=== PATIENT | female | born 1955 | race Caucasian/White ===

== ENCOUNTER 2018-02-18 01:22 | Observation (INO) | payer OTHER ==
--- NOTE | 2018-02-18 01:41 | ED ---
Chest Pain HPI - General Chief Complaint: Chest Pain Stated Complaint: chest heaviness Time Seen by Provider: 02/18/18 01:36 Source: patient Mode of arrival: ambulatory Limitations: no limitations - History of Present Illness Initial Comments: This patient is a 63-year-old woman who presents to be evaluated for substernal chest pressure. This first developed 3 nights ago, while the patient was at rest. She describes it as a pressure feeling, constant, without worsening or relieving factors. She denies any associated anginal symptoms, including no diaphoresis, dyspnea, nausea or vomiting, palpitations, lightheadedness or syncope. She states that it feels more intense tonight. Complaint: chest pain Onset/Timin -: days(s) Onset: during rest Pain Location: substernal Pain Radiation: none Severity: moderate Quality: dull Consistency: constant Improves With: nothing Worsens With: nothing Treatments Prior to Arrival: none - Related Data Home Medications Medication Instructions Recorded Confirmed Alendronate Sodium 70 mg PO 02/18/18 Atorvastatin [Lipitor] 40 mg PO DAILY 02/18/18 02/18/18 Calcium Carbonate [Calcium] 600 mg PO 02/18/18 Cyclobenzaprine [Flexeril] 10 mg PO HS 02/18/18 02/18/18 Ergocalciferol [Vitamin D2] 50,000 unit PO Q7D 02/18/18 02/18/18 Levothyroxine Sodium 25 mcg PO 02/18/18 Omeprazole 40 mg PO 02/18/18 Ranitidine HCl [Zantac] 150 mg PO BID 02/18/18 02/18/18 Topiramate [Topamax] 100 mg PO BID 02/18/18 02/18/18 Venlafaxine HCl [Effexor XR] 150 mg PO 02/18/18 Verapamil HCl [Verapamil ER] 240 mg PO 02/18/18 Ziprasidone HCl [Geodon] 80 mg PO 02/18/18 hydrOXYzine PAMOATE 50 mg PO 02/18/18 Allergies Allergy/AdvReac Type Severity Reaction Status Date / Time codeine AdvReac Rash/Hives Verified 02/18/18 01:29 morphine AdvReac Rash/Hives Verified 02/18/18 01:29 Review of Systems ROS Statement: Those systems with pertinent positive or pertinent negative responses have been documented in the HPI. ROS Other: All systems not noted in ROS Statement are negative. Constitutional: Denies: fever, chills Respiratory: Denies: cough, dyspnea Cardiovascular: Reports: as per HPI, chest pain. Denies: palpitations, dyspnea on exertion, orthopnea, edema, syncope Gastrointestinal: Denies: abdominal pain, nausea, vomiting Genitourinary: Denies: dysuria, hematuria Musculoskeletal: Denies: back pain Skin: Denies: rash Neurological: Denies: headache EKG Findings - EKG Results: EKG: interpreted by CLARISAD, sinus rhythm (Rate 73 bpm), normal axis, normal QRS - Blocks, [place], Hypertrophy, ST Abn: Repolarization changes or abnormalities: nonspecific abnormality, ST segment, and/or T wave Past Medical History Past Medical History: Hyperlipidemia, Hypertension, Osteoarthritis (OA), Thyroid Disorder Additional Past Medical History / Comment(s): hypothyroid, History of Any Multi-Drug Resistant Organisms: None Reported Past Surgical History: Section, Cholecystectomy, Hysterectomy, Orthopedic Surgery Additional Past Surgical History / Comment(s): biopsies, bunion removal X2, removed lobectomy, Past Psychological History: Bipolar Smoking Status: Former smoker Past Alcohol Use History: None Reported Past Drug Use History: None Reported General Exam Limitations: no limitations General appearance: alert, in no apparent distress Head exam: Present: atraumatic, normocephalic Eye exam: Present: normal appearance. Absent: scleral icterus, conjunctival injection ENT exam: Present: normal oropharynx Respiratory exam: Present: normal lung sounds bilaterally. Absent: respiratory distress, wheezes, rales, rhonchi, stridor, chest wall tenderness Cardiovascular Exam: Present: regular rate, normal rhythm, normal heart sounds. Absent: systolic murmur, diastolic murmur, rubs, gallop GI/Abdominal exam: Present: soft. Absent: distended, tenderness, guarding, rebound, rigid, mass Extremities exam: Present: normal inspection, normal capillary refill. Absent: pedal edema, calf tenderness Back exam: Present: normal inspection. Absent: CVA tenderness (R), CVA tenderness (L) Neurological exam: Present: alert Skin exam: Present: warm, dry, intact, normal color. Absent: rash Course Vital Signs 02/18/18 02/18/18 02/18/18 01:23 03:08 03:41 Temperature 97.9 F Pulse Rate 84 67 64 Respiratory 18 16 17 Rate Blood Pressure 182/84 175/86 148/76 O2 Sat by Pulse 95 99 99 Oximetry Disposition Clinical Impression: Chest pain Disposition: ADMITTED IP TO THIS HOSP Condition: Good Is patient prescribed a controlled substance at d/c from ED?: No Referrals: None,Stated [Primary Care Provider] - 1-2 days
[2018-02-18 02:09] LABS: Appearance,Urine Clear (Clear); Bilirubin,Urine Negative (Negative); Blood,Urine Negative (Negative); Color,Urine Light Yellow; Glucose,Urine (UA) Negative (Negative); Ketones,Urine Negative (Negative); Leukocyte Esterase,Urine Moderate (Negative); Nitrite,Urine Negative (Negative); Protein,Urine Negative (Negative); RBC,Urine 1 /hpf (0-5); Specific Gravity,Urine 1.003 (1.001-1.035); Squamous Epithelial Cell,Urine 1 /hpf (0-4); Urobilinogen,Urine <2.0 mg/dL (<2.0); WBC,Urine 7 /hpf (0-5)
[2018-02-18 02:10] LABS: Basophils % (A) 0 %; Eosinophils % (A) 1 %; HCT 38.8 % (34.0-46.0); HGB 12.6 gm/dL (11.4-16.0); Lymphocytes # (A) 1.9 k/uL (1.0-4.8); Lymphocytes % (A) 30 %; MCH 27.1 pg (25.0-35.0); MCHC 32.5 g/dL (31.0-37.0); MCV 83.3 fL (80.0-100.0); Monocytes # (A) 0.4 k/uL (0-1.0); Monocytes % (A) 6 %; Neutrophils # (A) 3.7 k/uL (1.3-7.7); Neutrophils % (A) 60 %; Platelet Count 344 k/uL (150-450); RBC 4.66 m/uL (3.80-5.40); RDW 15.4 % (11.5-15.5); WBC 6.2 k/uL (3.8-10.6)
--- NOTE | 2018-02-18 02:10 | XR ---
EXAMINATION TYPE: XR chest 1V portable DATE OF EXAM: 02/18/2018 COMPARISON: NONE HISTORY: Chest pain TECHNIQUE: Single frontal view of the chest is obtained. FINDINGS: Heart and mediastinum are normal. Lungs are clear. Diaphragm is normal. Bony thorax is int act. There are chest leads. IMPRESSION: Normal chest
[2018-02-18 02:17] LABS: Partial Thromboplastin Time 24.1 sec (22.0-30.0); Prothrombin Time 9.5 sec (9.0-12.0)
[2018-02-18 02:20] LABS: ALT 35 U/L (9-52); AST 27 U/L (14-36); Albumin 4.4 g/dL (3.5-5.0); Alkaline Phosphatase 136 U/L (38-126); Anion Gap 14 mmol/L; Blood Urea Nitrogen 4 mg/dL (7-17); Calcium 9.6 mg/dL (8.4-10.2); Carbon Dioxide 23 mmol/L (22-30); Chloride 98 mmol/L (98-107); Glucose 101 mg/dL (74-99); Magnesium 1.9 mg/dL (1.6-2.3); Potassium 3.8 mmol/L (3.5-5.1); Sodium 135 mmol/L (137-145); Total Bilirubin 0.5 mg/dL (0.2-1.3); Total Protein 6.9 g/dL (6.3-8.2)
[2018-02-18 02:28] LABS: Creatine Kinase 322 U/L (30-135)
[2018-02-18 02:32] LABS: Amylase 67 U/L (30-110); Lipase 183 U/L (23-300)
[2018-02-18 02:41] LABS: Creatine Kinase MB 2.4 ng/mL (0.0-2.4); Troponin I <0.012 ng/mL (0.000-0.034)
[2018-02-18] MEDS ORDERED: NITROGLYCERIN SL TABS 0.4 MG TAB SUBLINGUAL STA (02:58)
[2018-02-18] MEDS ORDERED: ASPIRIN 81 MG PO STA (02:58)
[2018-02-18] MEDS ORDERED: ONDANSETRON 4 MG/2 ML VIAL IVP STA (03:12)
[2018-02-18] MEDS ORDERED: fentaNYL (PF) 50 MCG/ML 2 ML AMP IV STA (04:38)
[2018-02-18 05:55] VITALS: BMI 35.9
[2018-02-18] MEDS ORDERED: NALOXONE 0.4 MG/ML 1 ML VIAL IV PRN (06:39)
[2018-02-18] MEDS ORDERED: ONDANSETRON 4 MG/2 ML VIAL IVP PRN (06:39)
[2018-02-18] MEDS ORDERED: ACETAMINOPHEN TAB 325 MG TAB PO PRN (06:39)
[2018-02-18] MEDS ORDERED: RX INFO: IV CONTRAST WAS GIVEN 1 EACH MISC MISCELLANE PRN (06:42)
--- NOTE | 2018-02-18 06:49 | P.HPIM ---
History of Present Illness H&P Date: 02/18/18 Is a 63-year-old female with past medical history of anxiety hypertension was admitted to the hospital with chest pain that has been going on and off for the last 2 or 3 days comes and goes as she states that she feels uncomfortable with some shortness of breath the chest pain improved but she continued to have uncomfortable feeling denies any vomiting denies any fever Chest pain is not associated with exertion she has a chest pain at rest Review of systems and systems has been reviewed all negative and positive findings as per HPI Past Medical History Past Medical History: Hyperlipidemia, Hypertension, Osteoarthritis (OA), Thyroid Disorder Additional Past Medical History / Comment(s): hypothyroid, History of Any Multi-Drug Resistant Organisms: None Reported Past Surgical History: Section, Cholecystectomy, Hysterectomy, Orthopedic Surgery Additional Past Surgical History / Comment(s): biopsies, bunion removal X2, removed lobectomy, Past Psychological History: Bipolar Smoking Status: Former smoker Past Alcohol Use History: None Reported Past Drug Use History: None Reported Constitutional: No acute distress, conversant, pleasant Eyes: Anicteric sclerae, moist conjunctiva, no lid-lag PERRLA ENMT: NC/AT Oropharynx clear, no erythema, exudates Neck: Supple, FROM, no masses, or JVD No carotid bruits No thyromegaly Lungs: Clear to auscultation Clear to percussion Normal respiratory effort, no accessory muscle use Cardiovascular: Heart regular in rate and rhythm, No murmurs, gallops, or rubs No peripheral edema Abdominal: Soft Nontender, no guarding, Skin: Normal temperature, tone, texture, turgor No induration No subcutaneous nodules No rash, lesions No ulcers Extremities: No digital cyanosis No clubbing Pedal pulses intact and symmetrical Radial pulses intact and symmetrical Normal gait and station No calf tenderness Psychiatric:Alert and oriented to person, place and time Appropriate affect Intact judgement Neuro: No obvious focal deficits Laboratory Results - last 24 hr 02/18/18 02/18/18 02/18/18 01:51 01:51 01:51 WBC 6.2 RBC 4.66 Hgb 12.6 Hct 38.8 MCV 83.3 MCH 27.1 MCHC 32.5 RDW 15.4 Plt Count 344 Neutrophils % 60 Lymphocytes % 30 Monocytes % 6 Eosinophils % 1 Basophils % 0 Neutrophils # 3.7 Lymphocytes # 1.9 Monocytes # 0.4 Eosinophils # 0.0 Basophils # 0.0 PT INR APTT D-Dimer Sodium 135 L Potassium 3.8 Chloride 98 Carbon Dioxide 23 Anion Gap 14 BUN 4 L Creatinine 0.70 Est GFR (CKD-EPI)AfAm >90 Est GFR (CKD-EPI)NonAf >90 Glucose 101 H Calcium 9.6 Magnesium 1.9 Total Bilirubin 0.5 AST 27 ALT 35 Alkaline Phosphatase 136 H Total Creatine Kinase 322 H CK-MB (CK-2) 2.4 CK-MB (CK-2) Rel Index 0.7 Troponin I <0.012 Total Protein 6.9 Albumin 4.4 Amylase Lipase Urine Color Urine Appearance Urine pH Ur Specific [place] Urine Protein Urine Glucose (UA) Urine Ketones Urine Blood Urine Nitrite Urine Bilirubin Urine Urobilinogen Ur Leukocyte Esterase Urine RBC Urine WBC Ur Squamous Epith Cells 02/18/18 02/18/18 02/18/18 01:51 01:51 01:51 WBC RBC Hgb Hct MCV MCH MCHC RDW Plt Count Neutrophils % Lymphocytes % Monocytes % Eosinophils % Basophils % Neutrophils # Lymphocytes # Monocytes # Eosinophils # Basophils # PT 9.5 INR 1.0 APTT 24.1 D-Dimer Sodium Potassium Chloride Carbon Dioxide Anion Gap BUN Creatinine Est GFR (CKD-EPI)AfAm Est GFR (CKD-EPI)NonAf Glucose Calcium Magnesium Total Bilirubin AST ALT Alkaline Phosphatase Total Creatine Kinase CK-MB (CK-2) CK-MB (CK-2) Rel Index Troponin I Total Protein Albumin Amylase 67 Lipase 183 Urine Color Light Yellow Urine Appearance Clear Urine pH 6.0 Ur Specific [place] 1.003 Urine Protein Negative Urine Glucose (UA) Negative Urine Ketones Negative Urine Blood Negative Urine Nitrite Negative Urine Bilirubin Negative Urine Urobilinogen <2.0 Ur Leukocyte Esterase Moderate H Urine RBC 1 Urine WBC 7 H Ur Squamous Epith Cells 1 02/18/18 01:51 WBC RBC Hgb Hct MCV MCH MCHC RDW Plt Count Neutrophils % Lymphocytes % Monocytes % Eosinophils % Basophils % Neutrophils # Lymphocytes # Monocytes # Eosinophils # Basophils # PT INR APTT D-Dimer 0.33 Sodium Potassium Chloride Carbon Dioxide Anion Gap BUN Creatinine Est GFR (CKD-EPI)AfAm Est GFR (CKD-EPI)NonAf Glucose Calcium Magnesium Total Bilirubin AST ALT Alkaline Phosphatase Total Creatine Kinase CK-MB (CK-2) CK-MB (CK-2) Rel Index Troponin I Total Protein Albumin Amylase Lipase Urine Color Urine Appearance Urine pH Ur Specific [place] Urine Protein Urine Glucose (UA) Urine Ketones Urine Blood Urine Nitrite Urine Bilirubin Urine Urobilinogen Ur Leukocyte Esterase Urine RBC Urine WBC Ur Squamous Epith Cells Vital Signs - 24 hr 02/18/18 02/18/18 02/18/18 01:23 03:08 03:41 Temperature 97.9 F Pulse Rate 84 67 64 Pulse Rate [ Pulse Oximetery ] Respiratory 18 16 17 Rate Blood Pressure 182/84 175/86 148/76 Blood Pressure [Left Arm] O2 Sat by Pulse 95 99 99 Oximetry 02/18/18 02/18/18 02/18/18 05:39 06:03 06:12 Temperature 97.6 F Pulse Rate Pulse Rate [ 62 68 75 Pulse Oximetery ] Respiratory 16 16 Rate Blood Pressure Blood Pressure 195/92 159/77 [Left Arm] O2 Sat by Pulse 93 L Oximetry Assessment and plan Chest pain with typical and atypical features cardiology has been consulted carotid enzymes has been negative We will also check computed tomography scan of the lungs to rule out PE Hypertension currently uncontrolled but acceptable we will resume home medications and will monitor Anxiety Past Medical History Past Medical History: GERD/Reflux, Hyperlipidemia, Hypertension, Osteoarthritis (OA), Thyroid Disorder Additional Past Medical History / Comment(s): hypothyroid, palpatations, melonoma behind left knee wtih removal, IBS History of Any Multi-Drug Resistant Organisms: None Reported Past Surgical History: Section, Cholecystectomy, Hysterectomy, Orthopedic Surgery Additional Past Surgical History / Comment(s): biopsies, bunion removal X2, only has right lobe of liver due to large blockage of bile duct, left knee arthroscopy, melonoma removed behind left knee Past Anesthesia/Blood Transfusion Reactions: No Reported Reaction, Previous Problems w/ Anesthesia Additional Past Anesthesia/Blood Transfusion Reaction / Comment(s): problems with hypotension after anesthia Past Psychological History: Bipolar Smoking Status: Former smoker Past Alcohol Use History: None Reported Past Drug Use History: None Reported - Past Family History Father Family Medical History: Coronary Artery Disease (CAD) Additional Family Medical History / Comment(s): not being treated still alive Mother Additional Family Medical History / Comment(s): cirrhosis of liver at age 72 Medications and Allergies Home Medications Medication Instructions Recorded Confirmed Type Alendronate Sodium 70 mg PO WEEKLY 02/18/18 02/18/18 History Atorvastatin [Lipitor] 40 mg PO DAILY 02/18/18 02/18/18 History Calcium Carbonate [Calcium] 500 mg PO BID 02/18/18 02/18/18 History Cyclobenzaprine [Flexeril] 10 mg PO BID 02/18/18 02/18/18 History Ergocalciferol [Vitamin D2] 50,000 unit PO Q7D 02/18/18 02/18/18 History Levothyroxine Sodium 25 mcg PO DAILY 02/18/18 02/18/18 History Omeprazole 40 mg PO BID 02/18/18 02/18/18 History Ranitidine HCl [Zantac] 150 mg PO BID 02/18/18 02/18/18 History Topiramate [Topamax] 100 mg PO BID 02/18/18 02/18/18 History Venlafaxine HCl [Effexor XR] 150 mg PO DAILY 02/18/18 02/18/18 History Verapamil HCl [Verapamil ER] 240 mg PO DAILY 02/18/18 02/18/18 History Ziprasidone HCl [Geodon] 80 mg PO DIRECTED 02/18/18 02/18/18 History hydrOXYzine PAMOATE 50 mg PO DAILY 02/18/18 02/18/18 History Allergies Allergy/AdvReac Type Severity Reaction Status Date / Time codeine AdvReac Rash/Hives Verified 02/18/18 01:29 morphine AdvReac Rash/Hives Verified 02/18/18 01:29 Physical Exam Vitals: Vital Signs Temp Pulse Pulse Resp BP BP Pulse Ox 02/18/18 06:12 75 159/77 02/18/18 06:03 68 16 02/18/18 05:39 97.6 F 62 16 195/92 93 L 02/18/18 03:41 64 17 148/76 99 02/18/18 03:08 67 16 175/86 99 02/18/18 01:23 97.9 F 84 18 182/84 95 Intake and Output 02/17/18 02/17/18 02/18/18 14:59 22:59 06:59 Other: Voiding Method Toilet # Voids 1 Weight 86.183 kg Results CBC & Chem 7: 02/18/18 01:51 02/18/18 01:51 Labs: Abnormal Lab Results - Last 24 Hours (Table) 02/18/18 02/18/18 02/18/18 Range/Units 01:51 01:51 01:51 Sodium 135 L (137-145) mmol/L BUN 4 L (7-17) mg/dL Glucose 101 H (74-99) mg/dL Alkaline Phosphatase 136 H (38-126) U/L Total Creatine Kinase 322 H (30-135) U/L Ur Leukocyte Esterase Moderate H (Negative) Urine WBC 7 H (0-5) /hpf Thrombosis Risk Factor Assmnt - Choose All That Apply Each Factor Represents 1 point: Obesity (BMI >25) Each Risk Factor Represents 2 Points: Age 61-74 years Thrombosis Risk Factor Assessment Total Risk Factor Score: 3 Thrombosis Risk Factor Assessment Level: Moderate Risk
--- NOTE | 2018-02-18 08:24 | CT ---
EXAMINATION TYPE: CT chest angio for PE DATE OF EXAM: 02/18/2018 COMPARISON: Chest x-ray earlier today HISTORY: Chest pain rule out pulmonary embolism. CT DLP: 343.9 mGycm. Automated Exposure Control for Dose Reduction was Utilized. CONTRAST: CTA scan of the thorax is performed with IV Contrast, patient injected with 100 mL of Isovue 370, pul monary embolism protocol. MIP Images are created on CT scanner and reviewed. FINDINGS: LUNGS: There is 8 x 5 mm calcified nodule or granuloma superior aspect left lower lobe on axial image 57. There is 3 x 2 mm nodule or nodular density left upper lobe axial image 20. No suspicious greate r than 5 mm noncalcified nodules or masses are identified. No suspicious consolidation or groundglass opacity is seen. No pleural effusion or pneumothorax is noted. Slightly elevated left hemidiaphragm is seen. Tracheobronchial tree is patent. MEDIASTINUM: There is satisfactory enhancement of the pulmonary artery and its branches, there is no CT evidence for pulmonary embolism. There are no greater than 1 cm noncalcified hilar or mediastinal lymph nodes. A few calcified subcentimeter left hilar lymph nodes are seen. No cardiomegaly or dianna cardial effusion is seen. Moderate to severe thickening of distal esophagus is present could be produ ct of poor distention, correlate clinically. OTHER: Left hepatic lobe is surgically absent with clips. Gallbladder is also likely surgically absen t. There is fat replaced atrophy of visualized anterior rectus muscles in the upper abdomen. There is mild multilevel spurring in the thoracic spine. Occasional calcification in the spleen is seen. IMPRESSION: 1. No CT evidence for acute pulmonary embolism. 2. No suspicious acute pulmonary process. Evidence of old granulomatous disease.
[2018-02-18] MEDS: NITROGLYCERIN SL TABS 0.4 MG TAB SUBLINGUAL PRN ×3 (08:42→09:02)
[2018-02-18 08:45] LABS: Creatine Kinase 290 U/L (30-135)
[2018-02-18 08:57] LABS: Troponin I <0.012 ng/mL (0.000-0.034)
[2018-02-18] MEDS: hydrOXYzine PAMOATE 25 MG CAP PO SCH (09:33)
[2018-02-18] MEDS: HYDROmorphone 2 MG TAB PO PRN ×3 (09:33→19:50)
[2018-02-18 09:42] LABS: Creatine Kinase MB 2.5 ng/mL (0.0-2.4)
[2018-02-18] MEDS ORDERED: LISINOPRIL 5 MG TAB PO SCH (09:45)
[2018-02-18] MEDS: LEVOTHYROXINE 25 MCG TAB PO SCH (10:27)
[2018-02-18] MEDS: PANTOPRAZOLE 40 MG TABLET PO SCH ×2 (10:40→17:59)
[2018-02-18] MEDS: VERAPAMIL SR 240 MG TABLET.ER PO SCH (10:40)
[2018-02-18] MEDS: CYCLOBENZAPRINE 10 MG TAB PO SCH ×2 (10:41→19:50)
[2018-02-18] MEDS: FAMOTIDINE 20 MG TAB PO SCH ×2 (10:41→19:50)
[2018-02-18] MEDS: VENLAFAXINE HCL ER 150 MG CAP PO SCH (10:41)
[2018-02-18] MEDS: ATORVASTATIN 40 MG TAB PO SCH (10:41)
[2018-02-18] MEDS: TOPIRAMATE 100 MG TAB PO SCH ×2 (10:42→19:50)
--- NOTE | 2018-02-18 11:07 | ECHOF ---
Referral Reason:cp MEASUREMENTS -------- HEIGHT: 154.9 cm WEIGHT: 86.2 kg BP: 197/93 IVSd: 1.0 cm (0.6 - 1.1) LVIDd: 3.5 cm (3.9 - 5.3) LVPWd: 1.0 cm (0.6 - 1.1) IVSs: 1.4 cm LVIDs: 1.8 cm LVPWs: 1.4 cm Ao Diam: 3.1 cm (2.0 - 3.7) AV Cusp: 1.6 cm (1.5 - 2.6) LA Diam: 2.5 cm (2.7 - 3.8) MV EXCURSION: 9.024 mm (> 18.000) MV EF SLOPE: 45 mm/s (70 - 150) EPSS: 0.2 cm MV E Ian: 0.73 m/s MV DecT: 234 ms MV A Ian: 0.72 m/s MV E/A Ratio: 1.01 RAP: 5.00 mmHg RVSP: 15.17 mmHg FINDINGS -------- Sinus rhythm. This was a technically good study. The left ventricular size is normal. Left ventricular wall thickness is normal. Overall left vent ricular systolic function is normal with, an EF between 55 - 60 %. The right ventricle is normal in size and function. The left atrium is normal in size. The right atrium is normal in size. The aortic valve is trileaflet, and appears structurally normal. No aortic stenosis or regurgitation. Mild mitral annular calcification present. There is trace mitral regurgitation. Trace tricuspid regurgitation present. The right ventricular systolic pressure, as measured by Dopp ler, is 15.17mmHg. Pulmonic valve appears structurally normal. The aortic root size is normal. Normal inferior vena cava with normal inspiratory collapse consistent with estimated right atrial pre ssure of 5 mmHg. The pericardium is normal. CONCLUSIONS -------- 1. Sinus rhythm. 2. This was a technically good study. 3. The left ventricular size is normal. 4. Left ventricular wall thickness is normal. 5. Overall left ventricular systolic function is normal with, an EF between 55 - 60 %. 6. The right ventricle is normal in size and function. 7. The left atrium is normal in size. 8. The right atrium is normal in size. 9. The aortic valve is trileaflet, and appears structurally normal. No aortic stenosis or regurgitati on. 10. Mild mitral annular calcification present. 11. There is trace mitral regurgitation. 12. Trace tricuspid regurgitation present. 13. The right ventricular systolic pressure, as measured by Doppler, is 15.17mmHg. 14. Pulmonic valve appears structurally normal. 15. The aortic root size is normal. 16. Normal inferior vena cava with normal inspiratory collapse consistent with estimated right atrial pressure of 5 mmHg. 17. The pericardium is normal. PIT FURNACE OPERATOR: Maty Fajardo RDCS
--- NOTE | 2018-02-18 11:08 | P.CRDCN ---
History of Present Illness Consult date: 02/18/18 Consult reason: chest pain History of present illness: Mrs. Hernandez is a pleasant 63-year-old female past medical history significant for dyslipidemia, hypertension, gastroesophageal reflux disease and hypothyroid. She denies history of coronary artery disease. She recalls that she did see a vest tailor once approximately 5-6 years ago while she was living in [place] and underwent stress testing which was negative. No cardiac catheterization. We have been asked to see her in consultation for chest pain. She states for the previous 3 days she has had a tight pressure in the mid- sternal region. The pain remains localized with no radiation to the arm, back, neck or jaw. She denies associated shortness of breath, dizziness, palpitations , nausea, vomiting of diaphoresis. The pain started at rest while she was laying in bed watching TV. No specific aggravating or alleviating factors. Although she does relate that when she lays down for bed at night the pain seems a little worse. Initially when she presented to ED she was given SL nitroglycerin that did not relieve her pain. Subsequently she received fentanyl which did help but the pain is starting to come back. The nurse was asked to given nitroglycerin x3 and this again did not relieve her pain. EKG sinus mechanism with flattened T-waves with no acute ST abnormalities. Chest xray is negative for an acute cardiopulmonary process. CT angio chest negative for PE. There is a calcified granuloma in left lower lobe and a smaller density in left upper lobe as well. Laboratory data reviewed, hemoglobin 12.6, platelets 344, d-dimer 0.33, sodium 135, potassium 3.8, magnesium 1.9, creatinine 0.7, cardiac enzymes negative 2. Current cardiac medications include verapamil 240 mg daily and atorvastatin 40 mg daily. She also takes hydroxyzine, Geodon, Effexor, Topamax, Zantac, omeprazole, levothyroxine, [place], Flexeril and alendronate sodium. Review of Systems At the time of my exam: CONSTITUTIONAL: Denies fever. Denies chills. EYES: Denies blurred vision. Denies vision changes. Denies eye pain. EARS, NOSE, MOUTH & THROAT: Denies headache. Denies sore throat. Denies ear pain. CARDIOVASCULAR: Complains of ongoing midsternal chest pain. Denies shortness of breath. Denies orthopnea. Denies PND. Denies palpitations. RESPIRATORY: Denies cough. GASTROINTESTINAL: Denies abdominal pain. Denies diarrhea. Denies constipation. Denies nausea. Denies vomiting. MUSCULOSKELETAL: Denies myalgias. INTEGUMENTARY: Denies pruitis. Denies rash. NEUROLOGIC: Denies numbness. Denies tingling. Denies weakness. PSYCHIATRIC: Denies anxiety. Denies depression. ENDOCRINE: Denies fatigue. Denies weight change. Denies polydipsia. Denies polyurina. GENITOURINARY: Denies burning, hematuria or urgency with micturation. HEMATOLOGIC: Denies history of anemia. Denies bleeding. Past Medical History Past Medical History: GERD/Reflux, Hyperlipidemia, Hypertension, Osteoarthritis (OA), Thyroid Disorder Additional Past Medical History / Comment(s): hypothyroid, palpatations, melonoma behind left knee wtih removal, IBS History of Any Multi-Drug Resistant Organisms: None Reported Past Surgical History: Section, Cholecystectomy, Hysterectomy, Orthopedic Surgery Additional Past Surgical History / Comment(s): biopsies, bunion removal X2, only has right lobe of liver due to large blockage of bile duct, left knee arthroscopy, melonoma removed behind left knee Past Anesthesia/Blood Transfusion Reactions: No Reported Reaction, Previous Problems w/ Anesthesia Additional Past Anesthesia/Blood Transfusion Reaction / Comment(s): problems with hypotension after anesthia Past Psychological History: Bipolar Smoking Status: Former smoker Past Alcohol Use History: None Reported Past Drug Use History: None Reported - Past Family History Father Family Medical History: Coronary Artery Disease (CAD) Additional Family Medical History / Comment(s): not being treated still alive Mother Additional Family Medical History / Comment(s): cirrhosis of liver at age 72 Medications and Allergies Home Medications Medication Instructions Recorded Confirmed Type Alendronate Sodium 70 mg PO Q7D 02/18/18 02/18/18 History Atorvastatin [Lipitor] 40 mg PO HS 02/18/18 02/18/18 History Calcium Carbonate 500 mg PO BID 02/18/18 02/18/18 History Cyclobenzaprine [Flexeril] 5 mg PO Q6H PRN 02/18/18 02/18/18 History Ergocalciferol [Vitamin D2] 50,000 unit PO MO 02/18/18 02/18/18 History HYDROcodone/APAP 10-325MG [[place] 1 tab PO Q4HR PRN 02/18/18 02/18/18 History 10-325] Levothyroxine Sodium 25 mcg PO DAILY 02/18/18 02/18/18 History Omeprazole 40 mg PO BID 02/18/18 02/18/18 History Ranitidine HCl [Zantac] 150 mg PO TID 02/18/18 02/18/18 History Topiramate [Topamax] 100 mg PO BID 02/18/18 02/18/18 History Triamcinolone 0.1% Cream [Kenalog] 1 applic TOPICAL BID 02/18/18 02/18/18 History Venlafaxine HCl [Effexor XR] 150 mg PO DAILY 02/18/18 02/18/18 History Verapamil HCl [Verapamil ER] 240 mg PO DAILY 02/18/18 02/18/18 History Ziprasidone HCl [Geodon] 80 mg PO HS 02/18/18 02/18/18 History hydrOXYzine PAMOATE 50 mg PO HS PRN 02/18/18 02/18/18 History Allergies Allergy/AdvReac Type Severity Reaction Status Date / Time codeine AdvReac Rash/Hives Verified 02/18/18 01:29 morphine AdvReac Rash/Hives Verified 02/18/18 01:29 Physical Exam Vitals: Vital Signs Temp Pulse Pulse Resp BP BP Pulse Ox 02/18/18 07:35 97.5 F L 82 18 197/93 95 02/18/18 06:12 75 159/77 02/18/18 06:03 68 16 02/18/18 05:39 97.6 F 62 16 195/92 93 L 02/18/18 03:41 64 17 148/76 99 02/18/18 03:08 67 16 175/86 99 02/18/18 01:23 97.9 F 84 18 182/84 95 Intake and Output 02/17/18 02/18/18 02/18/18 22:59 06:59 14:59 Other: Voiding Method Toilet # Voids 1 Weight 86.183 kg Blood pressure 197/93 heart rate 82 afebrile maintaining oxygen saturation on room air GENERAL: This is a 63-year-old female in no apparent distress at the time of my examination. Obese. HEENT: Head is atraumatic, normocephalic. Pupils are equal, round. Sclerae anicteric. Conjunctivae are clear. Mucous membranes of the mouth are moist. Neck is supple. There is no jugular venous distention. No carotid bruit is heard. LUNGS: Clear to auscultation no wheezes, rales or rhonchi. No chest wall tenderness is noted on palpation or with deep breathing. HEART: Regular rate and rhythm without murmurs, rubs or gallops. S1 and S2 heard. ABDOMEN: Soft, nontender. Bowel sounds are heard. No organomegaly noted. EXTREMITIES: No evidence of peripheral edema and no calf tenderness noted. VASCULAR: Radial and dorsalis pedis pulses palpated, no evidence of clubbing. NEUROLOGIC: Patient is awake, alert and oriented x3. Results 02/18/18 01:51 02/18/18 01:51 Cardiac Enzymes 02/18/18 02/18/18 02/18/18 Range/Units 01:51 01:51 08:07 AST 27 (14-36) U/L CK-MB (CK-2) 2.4 2.5 H* (0.0-2.4) ng/mL Troponin I <0.012 <0.012 (0.000-0.034) ng/mL Coagulation 02/18/18 Range/Units 01:51 PT 9.5 (9.0-12.0) sec APTT 24.1 (22.0-30.0) sec CBC 02/18/18 Range/Units 01:51 WBC 6.2 (3.8-10.6) k/uL RBC 4.66 (3.80-5.40) m/uL Hgb 12.6 (11.4-16.0) gm/dL Hct 38.8 (34.0-46.0) % Plt Count 344 (150-450) k/uL Comprehensive Metabolic Panel 02/18/18 Range/Units 01:51 Sodium 135 L (137-145) mmol/L Potassium 3.8 (3.5-5.1) mmol/L Chloride 98 (98-107) mmol/L Carbon Dioxide 23 (22-30) mmol/L BUN 4 L (7-17) mg/dL Creatinine 0.70 (0.52-1.04) mg/dL Glucose 101 H (74-99) mg/dL Calcium 9.6 (8.4-10.2) mg/dL AST 27 (14-36) U/L ALT 35 (9-52) U/L Alkaline Phosphatase 136 H (38-126) U/L Total Protein 6.9 (6.3-8.2) g/dL Albumin 4.4 (3.5-5.0) g/dL Current Medications Generic Name Dose Route Start Last Admin Trade Name Freq PRN Reason Stop Dose Admin Acetaminophen 650 mg 02/18/18 06:39 Tylenol Tab PO Q6HR PRN Mild Pain or Fever > 100.5 Aspirin 81 mg 02/19/18 09:00 Aspirin PO DAILY [facility] Atorvastatin Calcium 40 mg 02/18/18 09:00 Lipitor PO DAILY [facility] Cyclobenzaprine HCl 10 mg 02/18/18 09:00 Flexeril PO BID [facility] Famotidine 20 mg 02/18/18 09:00 Pepcid PO BID [facility] Hydromorphone HCl 2 mg 02/18/18 06:40 Dilaudid PO Q4HR PRN [facility] Hydroxyzine Pamoate 50 mg 02/18/18 09:00 02/18/18 09:33 Vistaril PO 50 mg DAILY [facility] Administration Levothyroxine Sodium 25 mcg 02/18/18 07:00 Synthroid PO 0630 [facility] Lisinopril 5 mg 02/18/18 09:45 Zestril PO DAILY [facility] Miscellaneous Information 1 each 02/18/18 06:42 Rx Info: Iv Contrast Was Given MISCELLANE 02/20/18 06:42 DAILY PRN Per Protocol Naloxone HCl 0.2 mg 02/18/18 06:39 Narcan IV Q2M PRN Opioid Reversal Nitroglycerin 0.4 mg 02/18/18 03:55 02/18/18 09:02 Nitrostat SUBLINGUAL 0.4 mg Q5M PRN Administration Chest Pain Ondansetron HCl 4 mg 02/18/18 06:39 Zofran IVP Q8HR PRN Nausea And Vomiting Pantoprazole Sodium 40 mg 02/18/18 07:30 Protonix PO AC-BID [facility] Sodium Chloride 10 ml 02/18/18 09:00 Saline Flush IV BID [facility] Topiramate 100 mg 02/18/18 09:00 Topamax PO BID [facility] Venlafaxine HCl 150 mg 02/18/18 09:00 Effexor Xr PO DAILY [facility] Verapamil HCl 240 mg 02/18/18 09:00 Isoptin Sr PO DAILY [facility] Ziprasidone 80 mg 02/18/18 21:00 Geodon PO HS [facility] Intake and Output 02/17/18 02/18/18 02/18/18 22:59 06:59 14:59 Other: Voiding Method Toilet # Voids 1 Weight 86.183 kg 02/18/18 01:51 02/18/18 01:51 Assessment and Plan Assessment: ASSESSMENT 1. Chest pain, atypical. 2. Hypertension, uncontrolled 3. Dyslipidemia 4. Gastroesophageal reflux disease 5. Former tobacco use. PLAN Continue to obtain serial cardiac enzymes to rule out an acute coronary event. Obtain 2-D echocardiogram and Doppler study to assess cardiac structure and function. Add lisinopril 5 mg daily regimen. Further recommendations to follow based on clinical course. Nurse Practitioner note has been reviewed, I agree with a documented findings and plan of care. Patient was seen and examined.
[2018-02-18 14:00] LABS: Creatine Kinase 292 U/L (30-135)
[2018-02-18 14:09] LABS: Creatine Kinase MB 2.3 ng/mL (0.0-2.4); Troponin I <0.012 ng/mL (0.000-0.034)
[2018-02-18] MEDS ORDERED: LISINOPRIL 5 MG TAB PO ONE (15:15)
[2018-02-18 20:00] VITALS: RESP 16
[2018-02-18] MEDS ORDERED: ZIPRASIDONE 80 MG CAP PO SCH (21:00)
[2018-02-19 00:05] LABS: Cholesterol 160 mg/dL (<200); HDL Cholesterol 55 mg/dL (40-60); LDL Cholesterol,Calculated 83 mg/dL (0-99); Triglycerides 109 mg/dL (<150)
[2018-02-19] MEDS: LEVOTHYROXINE 25 MCG TAB PO SCH (06:03)
[2018-02-19] MEDS ORDERED: LISINOPRIL 5 MG TAB PO SCH (09:00)
[2018-02-19] MEDS ORDERED: ASPIRIN 81 MG PO SCH (09:00)
[2018-02-19] MEDS ORDERED: ASPIRIN 325 MG TAB PO SCH (09:00)
[2018-02-19] MEDS ORDERED: LISINOPRIL 10 MG TAB PO SCH (09:00)
[2018-02-19] MEDS ORDERED: AMINOPHYLLINE 500 MG/20 ML VIAL IV PRN (09:23)
[2018-02-19] MEDS ORDERED: REGADENOSON 0.4 MG/5 ML SYRINGE IV ONE (09:23)
--- NOTE | 2018-02-19 12:23 | EST ---
EXERCISE STRESS DATE OF SERVICE: 02/19/2018 AGE: 63 SEX: Female HT: 5'1" WT: 194 pounds PROTOCOL: Lexiscan Cardiolite STAGE: DURATION OF EXERCISE: HEART RATE REST: 77 BLOOD PRESSURE REST: 124/73 MAXIMUM HEART RATE ACHIEVED: 91 MAXIMUM BLOOD PRESSURE: 131/57 85% MPHR: 100% MPHR: METS: INDICATION OF THE STUDY: Chest pain. CLINICAL INFORMATION: STRESS DATA: Pretesting physical examination showed a heart rate of 77, pressure is 124/73 mmHg. Baseline EKG shows sinus rhythm. A 0.4 mg of Lexiscan was given over 15 seconds per protocol. The max heart rate was 91 beats per minute and maximum pressure was 131/57 mmHg. Clinically, the patient did not have any symptoms. The EKG showed no ischemia. CONCLUSION: 1. Nondiagnostic electrocardiogram stress testing in response to Lexiscan. 2. Please follow up on the Cardiolite portion on separate report from radiology department. MMODL / IJN: [id number] /
--- NOTE | 2018-02-19 12:54 | NM ---
EXAMINATION TYPE: NM stress lexiscan cardiolite DATE OF EXAM: 02/19/2018 COMPARISON: CTA chest from yesterday HISTORY: Chest pain, history of hypertension, hypercholesteremia, and family history of heart attack presents with additional symptoms of difficulty breathing and palpitations TECHNIQUE: After the intravenous administration of 9.7 mCi Tc 99m Sestamibi - Cardiolite resting SPE CT images acquired 45 minutes post injection. The patient received 0.4mg Lexiscan, 25.9 mCi Tc 99m Sestamibi - Stress images obtained [address] injection FINDINGS: Review of stress and rest SPECT images demonstrates no distinct perfusion abnormality. Gated analysi s shows normal wall motion with an estimated left ventricular ejection fraction of greater than 80 %. Suspect concentric left ventricular hypertrophy on comparison CT. IMPRESSION: No scintigraphic evidence for reversible ischemia.
[2018-02-19] MEDS: hydrOXYzine PAMOATE 25 MG CAP PO SCH (12:58)
[2018-02-19] MEDS: VERAPAMIL SR 240 MG TABLET.ER PO SCH (12:59)
[2018-02-19] MEDS: PANTOPRAZOLE 40 MG TABLET PO SCH (12:59)
[2018-02-19] MEDS: FAMOTIDINE 20 MG TAB PO SCH (12:59)
[2018-02-19] MEDS: ATORVASTATIN 40 MG TAB PO SCH (12:59)
[2018-02-19] MEDS: VENLAFAXINE HCL ER 150 MG CAP PO SCH (12:59)
[2018-02-19] MEDS: TOPIRAMATE 100 MG TAB PO SCH (12:59)
[2018-02-19] MEDS: CYCLOBENZAPRINE 10 MG TAB PO SCH (12:59)
--- NOTE | 2018-02-19 13:21 | P.PN ---
Subjective Mrs. Hernandez is a pleasant 63-year-old female past medical history significant for dyslipidemia, hypertension, gastroesophageal reflux disease and hypothyroid. She denies history of coronary artery disease. She recalls that she did see a repairer welding systems and equipment once approximately 5-6 years ago while she was living in [place] and underwent stress testing which was negative. No cardiac catheterization. We have been asked to see her in consultation for chest pain. She states for the previous 3 days she has had a tight pressure in the mid- sternal region. The pain remains localized with no radiation to the arm, back, neck or jaw. She denies associated shortness of breath, dizziness, palpitations , nausea, vomiting of diaphoresis. The pain started at rest while she was laying in bed watching TV. No specific aggravating or alleviating factors. Although she does relate that when she lays down for bed at night the pain seems a little worse. Initially when she presented to ED she was given SL nitroglycerin that did not relieve her pain. Subsequently she received fentanyl which did help but the pain is starting to come back. The nurse was asked to given nitroglycerin x3 and this again did not relieve her pain. EKG sinus mechanism with flattened T-waves with no acute ST abnormalities. Chest xray is negative for an acute cardiopulmonary process. CT angio chest negative for PE. There is a calcified granuloma in left lower lobe and a smaller density in left upper lobe as well. Laboratory data reviewed, hemoglobin 12.6, platelets 344, d-dimer 0.33, sodium 135, potassium 3.8, magnesium 1.9, creatinine 0.7, cardiac enzymes negative 2. Current cardiac medications include verapamil 240 mg daily and atorvastatin 40 mg daily. She also takes hydroxyzine, Geodon, Effexor, Topamax, Zantac, omeprazole, levothyroxine, [place], Flexeril and alendronate sodium. 02/19/2018 Mrs. Hernandez seen and examined today in follow-up. She is resting comfortably in bed. She continues to have ongoing discomfort in the midsternal region. Telemetry tracings have been unremarkable. Blood pressure is much better controlled on lisinopril 5 mg daily. Echocardiogram and Doppler study obtained yesterday reveals preserved left ventricular systolic function with ejection fraction 55%. Blood pressure 130/58 heart rate 66 afebrile maintaining oxygen saturation on room air. Cardiac enzymes negative 3. Objective - Vital Signs Vital signs: Vital Signs Temp 97.7 F 02/19/18 07:47 Pulse 66 02/19/18 07:47 Resp 16 02/19/18 07:47 BP 103/58 02/19/18 07:47 Pulse Ox 96 02/19/18 07:47 Intake & Output 02/18/18 02/19/18 02/19/18 18:59 06:59 18:59 Intake Total 720 Balance 720 Weight 86.183 kg Intake: Oral 720 Other: Voiding Method Toilet Toilet Toilet # Voids 1 - Exam GENERAL: Well-appearing, well-nourished and in no acute distress. NECK: Supple without JVD or thyromegaly. LUNGS: Breath sounds clear to auscultation bilaterally. Respiration equal and unlabored. No wheezes, rales or rhonchi. HEART: Regular rate and rhythm without murmurs, rubs or gallops. S1 and S2 heard. EXTREMITIES: Normal range of motion, no edema. No clubbing or cyanosis. Peripheral pulses intact and strong. - Labs CBC & Chem 7: 02/18/18 01:51 02/18/18 01:51 Labs: Abnormal Lab Results - Last 24 Hours (Table) 02/18/18 Range/Units 13:24 Total Creatine Kinase 292 H (30-135) U/L Assessment and Plan Assessment: ASSESSMENT 1. Chest pain, atypical. 2. Hypertension, uncontrolled 3. Dyslipidemia 4. Gastroesophageal reflux disease 5. Former tobacco use. PLAN Proceed with Lexiscan stress test to assess for reversible cardiac ischemia. Continue with current medical therapy. Stress test is normal the patient is stable from a cardiac perspective. Follow-up with Dr. Lin in 2-3 weeks. Nurse Practitioner note has been reviewed, I agree with a documented findings and plan of care. Patient was seen and examined.
--- NOTE | 2018-02-19 14:47 | P.DS ---
Providers Date of admission: 02/18/18 03:55 Expected date of discharge: 02/19/18 Attending physician: Mckenzie Mejia MD Consults: 02/18/18 03:55 Consult Physician Routine Consulting Provider: Dionna Urias Consult Reason/Comments: chest pain Do you want consulting provider notified?: Yes Primary care physician: Stated None - Discharge Diagnosis(es) (1) Atypical chest pain Current Visit: Yes Status: Acute (2) Hypertensive urgency Current Visit: Yes Status: Acute (3) GERD (gastroesophageal reflux disease) Current Visit: Yes Status: Acute (4) Hyperlipidemia Current Visit: Yes Status: Acute Hospital Course: The patient is a 63-year-old femalein observation for atypical chest pain and was admitted to rule out ACS given her risk factors for coronary diseaseof age dyslipidemia and hypertension. her initial and subsequent EKG and troponins were negative for any sedation of any acute ischemia. Patient was noted to be in hypertensive urgency on presentation due to missing her home hypertensive regimen she was restarted on diltiazem and given aspirin and fentanyl for pain along with sublingual nitroglycerin. Workup including a 2-D echocardiogram was negative for any structural heart disease her ejection fraction was 55-60%, the patient was noted to have a mildly elevated d-dimer and subsequent CTA angiogram of the chest was negative for pulmonary embolism. The cardiology was consulted and a stress test was ordered which showed no reversible ischemia ischemia or physician of coronary disease. Patient was subsequently discharged home told to follow-up with her PCP in the next 2-3 days. This discharge process took approximately 30 minutes. new prescription at discharge lisinopril 10 mg daily Constitutional: No acute distress, conversant, pleasant Eyes: Anicteric sclerae, moist conjunctiva, no lid-lag, PERRLA ENMT: NC/AT,Oropharynx clear, no erythema, exudates Neck:Supple, FROM, no masses, or JVD, No carotid bruits; No thyromegaly Lungs: Clear to auscultation, Clear to percussion, Normal respiratory effort, no accessory muscle use Cardiovascular: Heart regular in rate and rhythm, No murmurs, gallops, or rubs no peripheral edema Abdominal: Soft Nontender, nom distended, no guarding, no rebound or rigidity, Normoactive bowel sounds No hepatomegaly, No splenomegaly, No palpable mass No abdominal wall hernia noted Skin: Normal temperature, tone, texture, turgor, No induration No subcutaneous nodules, No rash, lesions, No ulcers Extremities:No digital cyanosis No clubbing, Pedal pulses intact and symmetrical Radial pulses intact and symmetrical Normal gait and station, No calf tenderness Psychiatric: Alert and oriented to person, place and time, Appropriate affect Intact judgement Neuro: Muscles Strength 5/5 in all 4 extremities, Sensation to light touch grossly present throughout, Cranial nerves II-XII grossly intact. No focal sensory deficits Patient Condition at Discharge: Good Plan - Discharge Summary New Discharge Prescriptions: New Lisinopril [Zestril] 5 mg PO DAILY #30 tab Nitroglycerin Sl Tabs [Nitrostat] 0.4 mg SUBLINGUAL Q5M PRN tab PRN Reason: Chest Pain Continue Ranitidine HCl [Zantac] 150 mg PO TID Cyclobenzaprine [Flexeril] 5 mg PO Q6H PRN PRN Reason: Pain Ergocalciferol [Vitamin D2 (DRISDOL)] 50,000 unit PO MO hydrOXYzine PAMOATE 50 mg PO HS PRN PRN Reason: Anxiety Ziprasidone HCl [Geodon] 80 mg PO HS Verapamil HCl [Verapamil ER] 240 mg PO DAILY Venlafaxine HCl [Effexor XR] 150 mg PO DAILY Levothyroxine Sodium 25 mcg PO DAILY Alendronate Sodium 70 mg PO Q7D Topiramate [Topamax] 100 mg PO BID Omeprazole 40 mg PO BID Atorvastatin [Lipitor] 40 mg PO HS Calcium Carbonate 500 mg PO BID Triamcinolone 0.1% Cream [Kenalog] 1 applic TOPICAL BID HYDROcodone/APAP 10-325MG [[place] 10-325] 1 tab PO Q4HR PRN PRN Reason: Pain Discharge Medication List Alendronate Sodium 70 mg PO Q7D 02/18/18 [History] Atorvastatin [Lipitor] 40 mg PO HS 02/18/18 [History] Calcium Carbonate 500 mg PO BID 02/18/18 [History] Cyclobenzaprine [Flexeril] 5 mg PO Q6H PRN 02/18/18 [History] Ergocalciferol [Vitamin D2 (DRISDOL)] 50,000 unit PO MO 02/18/18 [History] HYDROcodone/APAP 10-325MG [[place] 10-325] 1 tab PO Q4HR PRN 02/18/18 [History] Levothyroxine Sodium 25 mcg PO DAILY 02/18/18 [History] Omeprazole 40 mg PO BID 02/18/18 [History] Ranitidine HCl [Zantac] 150 mg PO TID 02/18/18 [History] Topiramate [Topamax] 100 mg PO BID 02/18/18 [History] Triamcinolone 0.1% Cream [Kenalog] 1 applic TOPICAL BID 02/18/18 [History] Venlafaxine HCl [Effexor XR] 150 mg PO DAILY 02/18/18 [History] Verapamil HCl [Verapamil ER] 240 mg PO DAILY 02/18/18 [History] Ziprasidone HCl [Geodon] 80 mg PO HS 02/18/18 [History] hydrOXYzine PAMOATE 50 mg PO HS PRN 02/18/18 [History] Lisinopril [Zestril] 5 mg PO DAILY #30 tab 02/19/18 [Rx] Nitroglycerin Sl Tabs [Nitrostat] 0.4 mg SUBLINGUAL Q5M PRN tab 02/19/18 [Rx] Follow up Appointment(s)/Referral(s): Jamil Lin MD [STAFF PHYSICIAN] - 03/02/18 4:00 pm None,Stated [Primary Care Provider] - 1-2 days Discharge Disposition: HOME SELF-CARE
[2018-02-19 15:16] VITALS: BP 132/73; PULSE 76; TEMP 97.4
== END 2018-02-19 15:30 | disposition home or self-care (01) ==
LOC: EC 01:22 → 3OBS 03:55
PROVIDERS: ADMIT Internal Medicine; ATTEND Internal Medicine
DX: R07.89 Other chest pain (principal); I16.0 Hypertensive urgency; K21.9 Gastro-esophageal reflux disease without esophagitis; E78.5 Hyperlipidemia, unspecified; R79.89 Other specified abnormal findings of blood chemistry; R06.02 Shortness of breath; R00.2 Palpitations; I10 Essential (primary) hypertension; F41.9 Anxiety disorder, unspecified; F31.9 Bipolar disorder, unspecified; E03.9 Hypothyroidism, unspecified; M19.90 Unspecified osteoarthritis, unspecified site; K58.9 Irritable bowel syndrome, unspecified; Z79.899 Other long term (current) drug therapy; Z79.890 Hormone replacement therapy; Z79.83 Long term (current) use of bisphosphonates; Z88.5 Allergy status to narcotic agent; Z90.49 Acquired absence of other specified parts of digestive tract; Z87.891 Personal history of nicotine dependence; Z85.820 Personal history of malignant melanoma of skin; Z82.49 Family history of ischemic heart disease and other diseases of the circulatory system; E66.9 Obesity, unspecified; Z68.35 Body mass index [BMI] 35.0-35.9, adult
CPT/HCPCS: 99285; 96374 ×2; 96375 ×2; 96376; 36415; 93017; 93306; 85379; 80061; 80053; 82150; 82550; 82553; 83690; 83735; 84484; 85025; 85610; 85730; 81001; 71045; 71275; 78452; G0378 ×2; A9500; J2405; J3010; J2785; Q9967

== ENCOUNTER → 2018-11-12 | Outpatient (CLI) | payer OTHER ==
--- NOTE | 2018-11-13 10:06 | MM ---
Reason for exam: screening (asymptomatic). Last mammogram was performed 2 years and 9 months ago. History: Patient is postmenopausal. Excisional biopsy of the left breast. Physical Findings: A clinical breast exam by your physician is recommended on an annual basis and results should be correlated with mammographic findings. MG Screening Mammo w CAD Bilateral CC and MLO view(s) were taken. Prior study comparison: February 21, 2016, mammogram. December 01, 2014, mammogram. The breast tissue is heterogeneously dense. This may lower the sensitivity of mammography. Stable benign calcifications. There is no discrete abnormality. No significant changes when compared with prior studies. ASSESSMENT: Benign, BI-RAD 2 RECOMMENDATION: Routine screening mammogram of both breasts in 1 year.
== END | disposition home or self-care (01) ==
LOC: RADMAMWWP 09:15
PROVIDERS: ATTEND Internal Medicine
DX: Z12.31 Encounter for screening mammogram for malignant neoplasm of breast (principal)
CPT/HCPCS: 77067

== ENCOUNTER → 2020-08-18 | Outpatient (CLI) | payer OTHER ==
--- NOTE | 2020-08-21 12:17 | MM ---
Reason for exam: screening (asymptomatic). Last mammogram was performed 1 year and 9 months ago. History: Patient is postmenopausal and has history of other cancer at age 50. Family history of breast cancer in maternal aunt at age 70. Excisional biopsy of the left breast. Took hormonal contraceptives for 10 years. Took estrogen for 6 months. Physical Findings: A clinical breast exam by your physician is recommended on an annual basis and results should be correlated with mammographic findings. MG Screening Mammo w CAD Bilateral CC and MLO view(s) were taken. Prior study comparison: November 12, 2018, bilateral MG screening mammo w CAD. February 21, 2016, mammogram. Previous mammotome biopsy in the left breast. There is no discrete abnormality. ASSESSMENT: Benign, BI-RAD 2 RECOMMENDATION: Routine screening mammogram of both breasts in 1 year.
== END | disposition home or self-care (01) ==
LOC: RADMAMWWP 14:54
PROVIDERS: ATTEND Nurse Practitioner Family
DX: Z12.31 Encounter for screening mammogram for malignant neoplasm of breast (principal)
CPT/HCPCS: 77067

== ENCOUNTER → 2021-05-24 | Outpatient (CLI) | payer OTHER ==
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
== END | disposition home or self-care (01) ==
LOC: RADXRMAIN 16:48
PROVIDERS: ATTEND Physician Assistant Medical
DX: M17.0 Bilateral primary osteoarthritis of knee (principal)

== ENCOUNTER → 2021-08-20 | Outpatient (CLI) | payer MEDICARE, OTHER ==
--- NOTE | 2021-08-20 12:08 | MM ---
Reason for exam: clinical finding. Last mammogram was performed 1 year ago. History: Patient is postmenopausal and has history of other cancer at age 50. Family history of breast cancer in maternal aunt at age 70. Excisional biopsy of the left breast. Took hormonal contraceptives for 10 years. Took estrogen for 6 months. Physical Findings: Nurse Summary: 1cm nodule in the left breast at 4 o'clock (nurse db). MG 3D Diag Mammo W/Cad SWATHI Bilateral CC and MLO view(s) were taken. Prior study comparison: August 18, 2020, bilateral MG screening mammo w CAD. November 12, 2018, bilateral MG screening mammo w CAD. The breast tissue is heterogeneously dense. This may lower the sensitivity of mammography. Benign appearing bilateral calcifications. Previous mammotome biopsy in the left breast. These results were verbally communicated with the patient and result sheet given to the patient on 08/20/21. ASSESSMENT: Incomplete: need additional imaging evaluation, BI-RAD 0 RECOMMENDATION: Ultrasound of the left breast.
--- NOTE | 2021-08-20 12:10 | USB ---
Reason for exam: additional evaluation requested from abnormal screening. History: Patient is postmenopausal and has history of other cancer at age 50. Family history of breast cancer in maternal aunt at age 70. Excisional biopsy of the left breast. Took hormonal contraceptives for 10 years. Took estrogen for 6 months. US Breast Limited LT Left limited breast ultrasound including focal area of concern, retroareolar and axilla demonstrates a 1.5 x 0.8 x 1.1cm hyperechoic lipoma at 4 o'clock. These results were verbally communicated with the patient and result sheet given to the patient on 08/20/21. ASSESSMENT: Suspicious, BI-RAD 4 RECOMMENDATION: Ultrasound core biopsy of the left breast. Called Dr. Ramirez's office with mammographic findings and has scheduled an appointment for the patient for 10/18/21 at 11:[address] Swanson. Biopsy scheduled for 09/12/21 at 1:00. PRELIMINARY REPORT CALLED AND FAXED TO DR. SWANSON ON 08/20/21.
== END | disposition home or self-care (01) ==
LOC: RADMAMWWP 09:11
PROVIDERS: ATTEND Family Medicine
DX: R92.1 Mammographic calcification found on diagnostic imaging of breast (principal); Z78.0 Asymptomatic menopausal state; Z80.3 Family history of malignant neoplasm of breast; D17.39 Benign lipomatous neoplasm of skin and subcutaneous tissue of other sites
CPT/HCPCS: 77066; 76642; G0279; 77062

== ENCOUNTER → 2021-09-12 | Day surgery (SDC) | payer MEDICARE ==
[2021-09-12 12:19] VITALS: PULSE 84; RESP 16; TEMP 98
--- NOTE | 2021-09-12 13:40 | USB ---
EXAMINATION TYPE: US biopsy breast VAD LT DATE OF EXAM: 09/12/2021 CLINICAL HISTORY: N63 BREAST LUMP/MASS. TECHNIQUE: Ultrasound guided vaccuum assisted core biopsy of left breast. COMPARISON: NONE FINDINGS: The ultrasound guided core biopsy procedure was explained to the patient. The risks, benefits, alternatives were discussed. An informed consent was then obtained. Timeout was performed. The palpable region which the patient describes as a change was localized and targeted for the procedure. The patient was placed in supine positioning for imaging and for the procedure. The overlying skin was prepped with betadine and sterilely draped in usual sterile fashion. Lidocaine 1% was used as anesthetic into the skin and deeper breast tissue up to area of concern in the breast. A small skin reji was made with surgical scalpel. Under ultrasound guidance, a 12-gauge vacuum assisted biopsy device was used to obtain 2 core samples. The lesion was superficial and additional biopsies would have extended into the subcutaneous tissue. A biopsy clip was left in lesion. Coil clip was placed. Good hemostasis was obtained with direct pressure. Discharge instructions were discussed with the patient. The patient will follow up with the referring physician for results. Postprocedure mammogram: The patient was transferred to mammography for physician ordered post procedure mammogram for clip placement verification. The clip is in the expected region of the biopsy. The patient tolerated the procedure well without any immediate complication. The patient was discharged to home in stable condition. IMPRESSION: 1. Successful ultrasound guided biopsy left breast. Recommendations: 1. Recommendations are pending pathology results. Pathology Results: Benign LEFT BREAST, FOUR O'CLOCK, ULTRASOUND GUIDED CORE BIOPSY: Scar/fibrosis with fat necrosis and chronic inflammation, negative for malignancy. Recommendation Follow up ultrasound of the left breast in 6 months. MELODYD
--- NOTE | 2021-09-12 14:10 | MM ---
EXAMINATION TYPE: US biopsy breast VAD LT DATE OF EXAM: 09/12/2021 CLINICAL HISTORY: N63 BREAST LUMP/MASS. TECHNIQUE: Ultrasound guided vaccuum assisted core biopsy of left breast. COMPARISON: NONE FINDINGS: The ultrasound guided core biopsy procedure was explained to the patient. The risks, benef its, alternatives were discussed. An informed consent was then obtained. Timeout was performed. The palpable region which the patient describes as a change was localized and targeted for the proced ure. The patient was placed in supine positioning for imaging and for the procedure. The overlying skin w as prepped with betadine and sterilely draped in usual sterile fashion. Lidocaine 1% was used as ane sthetic into the skin and deeper breast tissue up to area of concern in the breast. A small skin lorri k was made with surgical scalpel. Under ultrasound guidance, a 12-gauge vacuum assisted biopsy device was used to obtain 2 core samples . The lesion was superficial and additional biopsies would have extended into the subcutaneous tissue . A biopsy clip was left in lesion. Coil clip was placed. Good hemostasis was obtained with direct pressure. Discharge instructions were discussed with the idalmis garcía. The patient will follow up with the referring physician for results. Postprocedure mammogram: The patient was transferred to mammography for physician ordered post proced ure mammogram for clip placement verification. The clip is in the expected region of the biopsy. The patient tolerated the procedure well without any immediate complication. The patient was dischar ged to home in stable condition. IMPRESSION: 1. Successful ultrasound guided biopsy left breast. Recommendations: 1. Recommendations are pending pathology results.
== END ==
LOC: RADUSWWP 12:08
PROVIDERS: ATTEND Surgery
DX: N60.32 Fibrosclerosis of left breast (principal)
CPT/HCPCS: 88305; 77065; 19083; A4648; J2001

== ENCOUNTER → 2022-03-18 | Outpatient (CLI) | payer MEDICARE ==
--- NOTE | 2022-03-18 19:20 | USB ---
Patient History: Menarche at age 18. First Full-Term at age 27. Right ovary removed at age 38. Hysterectomy at age 38. Postmenopausal. Other cancer, age 50. Estrogen for 6 months. Patient used Hormonal Contraceptives for 10 years. Excisional Biopsy on the Left side. 09/12/2021, Benign Core Biopsy on the left side. Maternal aunt had breast cancer, age 70. Risk Values: Minal 5 year model risk: 2.5%. NCI Lifetime model risk: 9.4%. Technique: Method: Targeted. Prior Study Comparison: 08/18/2020 Bilateral Screening Mammogram, [facility]. 08/20/2021 Bilateral Diagnostic Mammogram, [facility]. 09/12/2021 Left Diagnostic Mammogram, [facility]. Findings: The lower outer quadrant of the left breast, the axilla of the left breast and the retroareolar of the left breast were scanned. Finding 1: Mass. Laterality: Left. Size 5 x 3 x 5 mm. 4 O'clock Quadrant: Lower outer. Depth: Anterior. 3 cm cm from nipple. Targeted ultrasound left breast lower outer quadrant 3:00 to 6:00 including the subareolar region and axilla. At the 4:00 site of previous biopsy 6 months earlier, an oval echogenic lesion just deep to the skin surface smaller measuring 5 mm versus 1.5 cm, previously. No other solid or cystic lesion is seen. Patient's annual mammogram exam can be performed in 6 months in diagnostic clinic. Overall Assessment: Probably benign, BI-RAD 3 Management: Diagnostic Mammogram of both breasts in 6 months. 1. Six-month follow-up diagnostic mammogram on both sides in time for the patient's annual exam. 2. Patient should continue monthly self breast exams. 3. This exam should not exclude additional follow-up of suspicious palpable abnormalities. Electronically signed and approved by: Husam Farrar M.D. Radiologist
== END | disposition home or self-care (01) ==
LOC: RADUSWWP 09:50
PROVIDERS: ATTEND Surgery
DX: R92.8 Other abnormal and inconclusive findings on diagnostic imaging of breast (principal); Z78.0 Asymptomatic menopausal state; Z80.3 Family history of malignant neoplasm of breast; Z90.721 Acquired absence of ovaries, unilateral

== ENCOUNTER → 2022-09-17 | Outpatient (CLI) | payer MEDICARE ==
--- NOTE | 2022-09-17 09:21 | MM ---
Reason for Exam: Follow-up at short interval from prior study. Last mammogram was performed 1 year(s) and 1 month(s) ago. Patient History: Menarche at age 18. First Full-Term at age 27. Right ovary removed at age 38. Hysterectomy at age 38. Postmenopausal. Other cancer, age 50. Estrogen for 6 months. Patient used Hormonal Contraceptives for 10 years. Excisional Biopsy on the Left side. 09/12/2021, Benign Core Biopsy on the left side. Maternal aunt had breast cancer, age 70. Risk Values: Minal 5 year model risk: 2.5%. NCI Lifetime model risk: 9.4%. Tissue Density: The breast tissue is heterogeneously dense. This may lower the sensitivity of mammography. Findings: Analyzed By CAD. No new suspicious mass or worrisome cluster microcalcifications within either breast. No new suspicious architectural distortion. Previous mammotome biopsy left breast x2. Benign-appearing bilateral calcifications. Overall Assessment: Benign, BI-RAD 2 Management: Screening Mammogram of both breasts in 1 year. A clinical breast exam by your physician is recommended on an annual basis and results should be correlated with mammographic findings. This exam should not preclude additional follow-up of suspicious palpable abnormalities. Results were given to the patient verbally at the time of exam. Electronically signed and approved by: Ilir Montiel D.O.
== END | disposition home or self-care (01) ==
LOC: RADMAMWWP 08:45
PROVIDERS: ATTEND Surgery
DX: R92.8 Other abnormal and inconclusive findings on diagnostic imaging of breast (principal); Z80.3 Family history of malignant neoplasm of breast; Z78.0 Asymptomatic menopausal state; Z98.890 Other specified postprocedural states
CPT/HCPCS: 77066; G0279; 77062

== ENCOUNTER → 2022-09-23 | Outpatient (CLI) | payer MEDICARE ==
--- NOTE | 2022-09-23 16:17 | US ---
EXAMINATION TYPE: US venous doppler duplex LE RT DATE OF EXAM: 09/23/2022 3:58 PM COMPARISON: NONE CLINICAL HISTORY: M25.561 PAIN IN RIGHT KNEE. Pain SIDE PERFORMED: Right TECHNIQUE: The lower extremity deep venous system is examined utilizing real time linear array sonog leroy with graded compression, doppler sonography and color-flow sonography. VESSELS IMAGED: Common Femoral Vein Deep Femoral Vein Greater Saphenous Vein * Femoral Vein Popliteal Vein Small Saphenous Vein * Proximal Calf Veins (* superficial vessels) Right Leg: Negative for DVT Grayscale, color doppler, spectral doppler imaging performed of the deep veins of the right lower ext remity. There is normal flow, compressibility, vascular waveforms. IMPRESSION: No ultrasound evidence for acute DVT in the right lower extremity.
== END | disposition home or self-care (01) ==
LOC: RADUSWWP 15:33
PROVIDERS: ATTEND Orthopaedic Surgery
DX: M25.561 Pain in right knee (principal)

== ENCOUNTER → 2022-10-03 | Outpatient (CLI) | payer MEDICARE ==
--- NOTE | 2022-10-03 12:05 | CA ---
Lexiscan Nuclear Stress Test Report Name: Miranda Hernandez Exam Date: 10/03/2022 09:49 Exam Location: [facility] Ht (in): 61 Wt (lb): 273 BSA: 2.16 Ordering Phys: Oliva Ramirez DO Referring Phys: Ariana Quiles PAC Technologist: Lluvia Caldwell RDCS Age: 67 Gender: F : 1955 Procedure CPT: Indications: R06.09 I10 ICD-10 Codes: Patient History: cp, estrella, palp, chol, fam hx, smoker Medications: tyleno, morphine Meds past 24 hrs: Pretest Chest Pain: STRESS TEST Lexiscan Protocol Exercise Duration (min:sec): 02:[address] Depressions (mm): Angina Score: Hall Score: Resting HR (bpm): 80 Peak HR (bpm): 84 Resting BP (mmHg): 140 / 57 Peak BP (mmHg): / 53 MPHR: 155 Target HR: 132 % MPHR: 54 METS: 1.0 Total Dose: Peak Dose: Atropine: Double Product: BP Response: Stress Termination: Stress Symptoms: Stress Summary: ECG ANALYSIS Resting ECG: Stress ECG: CONCLUSIONS Non-diagnostic electrocardiogram stress testing Please follow-up on the Cardiolite portion Dr. Jamil Lin MD (Electronically Signed) Final Date: 03 October 2022 12:05
--- NOTE | 2022-10-03 15:05 | NM ---
EXAMINATION TYPE: NM stress lexiscan cardiolite DATE OF EXAM: 10/03/2022 COMPARISON: 02/19/2018 HISTORY: 67-year-old female with chest pain, R06.09, I10. TECHNIQUE: After the intravenous administration of 10.6 mCi Tc 99m Sestamibi - Cardiolite resting SP ECT images acquired 45 minutes post injection. The patient received 0.4mg Lexiscan, 26.7 mCi Tc 99m Sestamibi - Stress images obtained [address] injection FINDINGS: Review of stress and rest SPECT images demonstrates no distinct perfusion abnormality. Gated analysi s shows normal wall motion with an estimated left ventricular ejection fraction of 89 %. TID is calc ulated normal at 0.86. IMPRESSION: No scintigraphic evidence for reversible ischemia.
== END | disposition home or self-care (01) ==
LOC: RADNMMAIN 08:00
PROVIDERS: ATTEND Family Medicine
DX: I10 Essential (primary) hypertension (principal); R06.09 Other forms of dyspnea
CPT/HCPCS: 93017; 78452; A9500

== ENCOUNTER 2023-06-20 08:41 | Day surgery (SDC) | payer MEDICARE ==
[~2023-06-20 08:41] MED LIST: DEXAMETHASONE SOD PHOSPHATE 4 MG/ML 1 ML VIAL IV ONE; MIDAZOLAM 2 MG/2 ML VIAL IV PRN; ONDANSETRON 4 MG/2 ML VIAL IVP ONE; fentaNYL (PF) 50 MCG/ML 2 ML AMP IV PRN
[2023-06-20] MEDS: LACTATED RINGERS 1,000 ML IV SCH ×2 (09:34→11:29)
[2023-06-20] MEDS ORDERED: SUCCINYLCHOLINE CHLORIDE 200 MG/10 ML VIAL IV ONE (11:25)
[2023-06-20] MEDS ORDERED: LIDOCAINE 2% INJ 20 MG/ML (2 ML VIAL) ONE (11:25)
[2023-06-20] MEDS ORDERED: MIDAZOLAM 2 MG/2 ML VIAL ONE (11:25)
[2023-06-20] MEDS ORDERED: PROPOFOL 10 MG/ML 20 ML VIAL IV ONE (11:25)
[2023-06-20] MEDS ORDERED: PHENYLEPHRINE-0.9% NACL SYG 1,000 MCG/10 ML SYRINGE ONE (11:25)
[2023-06-20] MEDS ORDERED: ePHEDrine 50 MG/ML 1 ML VIAL ONE (11:25)
[2023-06-20] MEDS ORDERED: VASOPRESSIN 20 UNIT/ML 1 ML VIAL ONE (11:25)
[2023-06-20] MEDS ORDERED: fentaNYL (PF) 50 MCG/ML 2 ML AMP ONE (11:25)
[2023-06-20] MEDS ORDERED: BUPIVACAINE (PF) 0.25% 30 ML VIAL SQ ONE (11:48)
[2023-06-20] MEDS ORDERED: ceFAZolin 1,000 MG in SODIUM CHLORIDE 0.9% 1,000 ML IRRIGATION ONE (11:51)
--- NOTE | 2023-06-20 12:48 | P.OP ---
Date of Procedure: 06/20/23 Preoperative Diagnosis: Hallux valgus left foot Postoperative Diagnosis: Same Procedure(s) Performed: First metatarsal phalangeal joint arthrodesis left foot Implants: Arthrex MaxForce plate with associated screws Anesthesia: SAM Surgeon: Gavin Ramachandran Estimated Blood Loss (ml): 2 Pathology: none sent Condition: stable Disposition: PACU Description of Procedure: .The patient was brought into the operating room and placed on table in the supine position. Timeout was taken to confirm correct patient identifiers, correct lateral surgery, and correct procedure. Once the staff in the room were in agreement with the timeout, the patient was induced and placed under general anesthesia. 20 mL 0.25% Marcaine was injected as a forefoot block. A well- padded tourniquet was placed on the ankle and then the foot was prepped and draped in the usual manner. The right foot was exsanguinated and the tourniquet inflated to 250 mmHg. Attention was directed over the dorsal aspect of the first metatarsal phalangeal joint, where a linear incision was made between the long extensor tendon and the neurovascular structures. The incision was deepened down to the subcutaneous layer careful to identify, avoid, and retract any neurovascular structures and cauterize any bleeding vessels. Blunt dissection was continued through the subcutaneous layer down to the periosteum and capsule. A linear periosteal and capsular incision was made medial to the long extensor tendon. Those tissues were then sharply reflected off of the first metatarsal head and shaft as well as the base of the proximal phalanx. The soft tissue was released around the joint so that the joint could be mobilized and accessed. A guidewire was placed through the central aspect of the first metatarsal head parallel to the long access and within the medullary canal. Appropriate size reamers were used to shape the first metatarsal head. Then a concave reamer was inserted over the guidewire and used to remove the articular cartilage and subchondral bone. The wire was removed was used to aggressively fenestrate the head of the first metatarsal. The guidewire was then inserted at the central aspect of the articular surface of the base of the proximal phalanx. The wire was advanced parallel to the long access and within the medullary canal. The convex reamer was then used to remove the articular cartilage and subchondral bone. The guidewire was removed and used to fenestrate the surface. The wound was thoroughly irrigated with antibiotic saline. Arthrex Arthrocell was placed between the arthrodesis segments. A 0 bend first metatarsal phalangeal joint fusion plate was then positioned dorsally over the site. Temporary fixation was used to hold the plate in place. Fluoroscopy was used to check the placement of the plate as well as the joint alignment. Once both positions were satisfactory, a combination of locking and nonlocking screws were placed in the distal part of the plate into the proximal phalanx. The position of the joint and plate were checked again under fluoroscopy. Once both were satisfactory, a wire was placed in the base of the proximal phalanx and across the arthrodesis site to maintain the alignment. The offset drill guide was then placed in the compression slot of the plate. The guide was removed and then the compression device was inserted through the drill hole and engaged with the plate. The compression device was turned to further compress the joint. While holding in compression, another threaded olive wire was used to hold it in place. A drill hole through the proximal compression slot was then made and a nonlocking screw was inserted and tightened until it engaged the plate and provided further compression across the arthrodesis site. A nonlocking screw was then placed in the drill hole in the proximal aspect of the plate closest to the joint line. The final screw was a locking screw placed in the most proximal hole the plate. Final fluoroscopic imaging showed proper placement of all hardware, maintaining correction of the joint, and excellent compression across the arthrodesis site. The temporary fixation wire was removed and the joint thoroughly irrigated with antibiotic saline. The capsule and periosteal tissues were closed with 0 Vicryl. Subcu closure was done with 4-0 Monocryl. And skin closure was done with 4-0 Stratafix in a running subcuticular manner. Dermal glue was placed ar ound the incision, and once dried, Steri-Strips are placed across incision. An Arthrex jumpstart dressing was placed directly over the incision and then a dry sterile dressings applied to the right foot. The tourniquet was released and capillary refill return to all digits on the right foot. The patient was then placed in a well-padded, well molded plaster posterior mold/sugar tong splint. The ankle was held in neutral position until the splint was dried. Then anesthesia was reversed and the patient was taken recovery with vital signs stable.
[2023-06-20 13:12] VITALS: TEMP 98
[2023-06-20] MEDS ORDERED: ONDANSETRON 4 MG/2 ML VIAL IVP ONE (13:49)
[2023-06-20 14:15] VITALS: RESP 20
[2023-06-20 14:44] VITALS: BP 147/78; PULSE 78
== END 2023-06-20 15:21 | disposition home or self-care (01) ==
LOC: OR 08:41
PROVIDERS: ATTEND Podiatrist
DX: M20.12 Hallux valgus (acquired), left foot (principal); I11.0 Hypertensive heart disease with heart failure; I50.9 Heart failure, unspecified; E78.5 Hyperlipidemia, unspecified; E03.9 Hypothyroidism, unspecified; Z79.899 Other long term (current) drug therapy; Z88.5 Allergy status to narcotic agent; Z90.89 Acquired absence of other organs; Z98.890 Other specified postprocedural states
CPT/HCPCS: 28750; C1713; C1734; J2250; J0330; J1100; J0690 ×2; J2405; J3010; J2704; J2001; J2371; J0665

== ENCOUNTER → 2024-01-01 | Outpatient (CLI) | payer MEDICARE ==
--- NOTE | 2024-01-02 12:41 | MM ---
Reason for Exam: Screening (asymptomatic). Last mammogram was performed 1 year(s) and 3 month(s) ago. Patient History: Menarche at age 18. First Full-Term at age 27. Right ovary removed at age 38. Hysterectomy at age 38. Postmenopausal. Patient has history of breast feeding. Other cancer, age 50. Estrogen for 6 months. Patient used Hormonal Contraceptives for 10 years. Excisional Biopsy on the Left side. 09/12/2021, Benign Core Biopsy on the left side. Maternal aunt had breast cancer, age 70. Risk Values: Minal 5 year model risk: 2.5%. NCI Lifetime model risk: 9.0%. Prior Study Comparison: 02/21/2016 Screening Mammogram, Unknown. 11/12/2018 Bilateral Screening Mammogram, [facility]. 08/18/2020 Bilateral Screening Mammogram, [facility]. 08/20/2021 Bilateral Diagnostic Mammogram, [facility]. 09/12/2021 Left Diagnostic Mammogram, [facility]. 09/17/2022 Bilateral MG 3D diag mammo w/cad SWATHI, [facility]. Tissue Density: The breasts are heterogeneously dense, which may obscure small masses. Findings: Analyzed By CAD. Right breast: There is no suspicious group of microcalcifications or new suspicious mass. Left breast: There is no suspicious group of microcalcifications or new suspicious mass. There is no suspicious group of microcalcifications or new suspicious mass. Overall Assessment: Negative, BI-RAD 1 Management: Screening Mammogram of both breasts in [address] [facility] will attempt to contact patient to return for supplemental views and ultrasound if indicated. Patient should continue monthly self-breast exams. A clinical breast exam by your physician is recommended on an annual basis. This exam should not preclude additional follow-up of suspicious palpable abnormalities. Note on Imnal scores and lifetime risk: 1. A Minal score greater than 3% is considered moderate risk. If this is the case, consider specialist referral to assess eligibility for a risk reducing agent. 2. If overall lifetime risk for the development of breast cancer is 20% or higher, the patient may qualify for future screening with alternating mammogram and breast MRI. Electronically signed and approved by: Kyle Black DO
== END | disposition home or self-care (01) ==
LOC: RADMAMWWP 13:35
PROVIDERS: ATTEND Family Medicine
DX: Z12.31 Encounter for screening mammogram for malignant neoplasm of breast (principal); Z80.3 Family history of malignant neoplasm of breast; Z78.0 Asymptomatic menopausal state
CPT/HCPCS: 77063; 77067

== ENCOUNTER → 2025-02-22 | Outpatient (CLI) | payer MEDICARE ==
--- NOTE | 2025-02-22 15:21 | CT ---
EXAMINATION TYPE: CT abdomen w con DATE OF EXAM: 02/22/2025 COMPARISON: None CLINICAL INDICATION: Female, 70 years old with history of R10.9 UNSPECIFIED ABDOMINAL PAIN K94.22 GAS TROSTOM; PHH, presurgical, rule out abscess TECHNIQUE: Performed with Oral Contrast and with IV Contrast, patient injected with 100 ml mL of Isovue 300. CT DLP: [address] CTDI: mGy Automated exposure control for dose reduction was used. Findings: The lung bases are clear. There is a PEG tube within the stomach. There is surgical absence of the gallbladder. There is no biliary ductal dilatation. There is no focal mass or organomegaly involving the liver, pancreas, spleen or adrenal glands. There is a left nephrectomy. There is no solid renal mass or hydronephrosis and there is homogeneous contrast enhancement of the r enal parenchyma. The caliber the abdominal aorta is normal is no retroperitoneal adenopathy or hemorr gely. There is a left hemicolectomy ostomy in left lower quadrant of the abdomen. The bowel loops are elizabet l in caliber and there is no evidence of dilatation or obstruction. No inflammatory changes are ident ified in the bowel wall or mesentery. There is no free intraperitoneal air or fluid. The osseous structures and soft tissues are intact. IMPRESSION: 1. No acute changes within the abdomen. 2. Postsurgical changes as described above. [facility], , 02/22/2025 3:19 PM
== END | disposition home or self-care (01) ==
LOC: RADCTMAIN 12:50
PROVIDERS: ATTEND Family Medicine
DX: K94.22 Gastrostomy infection (principal); Z90.49 Acquired absence of other specified parts of digestive tract
CPT/HCPCS: 74160; 36415; Q9967

== ENCOUNTER → 2025-04-22 | Outpatient (CLI) | payer MEDICARE ==
--- NOTE | 2025-04-22 14:51 | MM ---
Reason for Exam: Screening (asymptomatic). Last mammogram was performed 1 year(s) and 4 month(s) ago. Patient History: Menarche at age 18. First Full-Term at age 27. Right ovary removed at age 38. Hysterectomy at age 38. Postmenopausal. Patient has history of breast feeding. Other cancer, age 50. Estrogen for 6 months. Patient used Hormonal Contraceptives for 10 years. Excisional Biopsy on the Left side. 09/12/2021, Benign Core Biopsy on the left side. Maternal aunt had breast cancer, age 70. Risk Values: Minal 5 year model risk: 2.6%. NCI Lifetime model risk: 8.3%. Prior Study Comparison: 09/12/2021 Left Diagnostic Mammogram, [facility]. 09/17/2022 Bilateral MG 3D diag mammo w/cad SWATHI, [facility]. 01/01/2024 Bilateral MG 3D screening mammo w/cad, [facility]. Tissue Density: The breasts are heterogeneously dense, which may obscure small masses. Findings: Analyzed By CAD. There is more prominent benign-appearing vascular calcifications bilaterally. Mammotome biopsy clip in the left breast is redemonstrated. Benign-appearing bilateral axillary lymph nodes are identified. There is increasing group of indistinct calcifications in the left breast middle depth medial aspect. Overall Assessment: Incomplete: need additional imaging evaluation, BI-RAD 0 Management: Diagnostic Mammogram of the left breast. Return for additional spot magnification and 3-D true lateral views left breast. Patient should continue monthly self-breast exams. A clinical breast exam by your physician is recommended on an annual basis. This exam should not preclude additional follow-up of suspicious palpable abnormalities. Note on Minal scores and lifetime risk: 1. A Minal score greater than 3% is considered moderate risk. If this is the case, consider specialist referral to assess eligibility for a risk reducing agent. 2. If overall lifetime risk for the development of breast cancer is 20% or higher, the patient may qualify for future screening with alternating mammogram and breast MRI. [facility], , 04/22/2025 2:48 PM. Electronically signed and approved by: Bjorn Villalpando M.D.
== END | disposition home or self-care (01) ==
LOC: RADMAMWWP 13:40
PROVIDERS: ATTEND Family Medicine
DX: Z12.31 Encounter for screening mammogram for malignant neoplasm of breast (principal); R92.333 Mammographic heterogeneous density, bilateral breasts; R92.1 Mammographic calcification found on diagnostic imaging of breast; Z78.0 Asymptomatic menopausal state; Z92.0 Personal history of contraception; Z80.3 Family history of malignant neoplasm of breast
CPT/HCPCS: 77063; 77067

== ENCOUNTER → 2025-04-29 | Outpatient (CLI) | payer MEDICARE ==
--- NOTE | 2025-04-29 14:05 | MM ---
Reason for Exam: Additional evaluation requested from abnormal screening. Last screening mammogram was performed less than 1 month ago. Patient History: Menarche at age 18. First Full-Term at age 27. Right ovary removed at age 38. Hysterectomy at age 38. Postmenopausal. Patient has history of breast feeding. Other cancer, age 50. Estrogen for 6 months. Patient used Hormonal Contraceptives for 10 years. Excisional Biopsy on the Left side. 09/12/2021, Benign Core Biopsy on the left side. Maternal aunt had breast cancer, age 70. Risk Values: Minal 5 year model risk: 2.6%. NCI Lifetime model risk: 8.3%. Prior Study Comparison: 09/17/2022 Bilateral MG 3D diag mammo w/cad SWATHI, [facility]. 01/01/2024 Bilateral MG 3D screening mammo w/cad, [facility]. 04/22/2025 Bilateral MG 3D screening mammo w/cad, [facility]. Tissue Density: Left: The breasts are heterogeneously dense, which may obscure small masses. Findings: Analyzed By CAD. Persistent increasing grouped calcifications within the left breast on magnification views approximately 5 cm from the upper inner quadrant. Overall Assessment: Suspicious, BI-RAD 4 Management: Stereotactic Core Biopsy of the left breast. . Results were given to the patient verbally at the time of exam. Patient should continue monthly self-breast exams. A clinical breast exam by your physician is recommended on an annual basis. This exam should not preclude additional follow-up of suspicious palpable abnormalities. Note on Minal scores and lifetime risk: 1. A Minal score greater than 3% is considered moderate risk. If this is the case, consider specialist referral to assess eligibility for a risk reducing agent. 2. If overall lifetime risk for the development of breast cancer is 20% or higher, the patient may qualify for future screening with alternating mammogram and breast MRI. [facility], , 04/29/2025 2:02 PM. Electronically signed and approved by: Giovanni Hidalgo M.D. Radiologis
== END | disposition home or self-care (01) ==
LOC: RADMAMWWP 13:26
PROVIDERS: ATTEND Family Medicine
DX: R92.8 Other abnormal and inconclusive findings on diagnostic imaging of breast (principal); R92.332 Mammographic heterogeneous density, left breast; Z78.0 Asymptomatic menopausal state; Z80.3 Family history of malignant neoplasm of breast; Z92.0 Personal history of contraception
CPT/HCPCS: 77061; 77065